=== PATIENT | male | born 1985 | race Two or more races ===

== ENCOUNTER 2017-03-20 12:20 | Inpatient (IN) | payer BC ==
[~2017-03-20] VITALS: Ht 175.3 cm; Wt 66.2 kg
[2017-03-20] MEDS ORDERED: PROSCAR5 MG ORAL (12:28)
[2017-03-20] MEDS ORDERED: DESCOVY 200-251 EACH PO (12:28)
[2017-03-20] MEDS ORDERED: TIVICAY10 MG PO (12:28)
[2017-03-20] MEDS ORDERED: XANAX0.25 MG ORAL (12:28)
[2017-03-20] MEDS ORDERED: FLONASE ALLERG9.9 ML NS (12:28)
[2017-03-20 12:31] VITALS: BP 128/75
--- NOTE | 2017-03-20 12:37 | Emergency Room Report ---
History of Present Illness General Chief Complaint: Skin Rash/Abscess Source: Patient (Eden James) Present Illness HPI 31-year-old male presents to the emergency department complaining of 10 out of 10 in severity pain, tenderness, erythema, swelling to a localized area on the buttocks x4 days. Patient also reports new onset fevers, chills. Patient has a history of HIV he does not know his CD4 count but he states last visit it was in the 500s. Pt denies trauma, fall, blood in the stool or black tarry stools. Denies CP, Palpitations, LOC, AMS, dizziness, Changes in Vision, Sensation, paresthesias, or a sudden severe headache. (Eden James) Allergies: Coded Allergies: No Known Allergies (Unverified , 03/20/17) Patient History Past Medical History: see triage record, HIV Past Surgical History: none Pertinent Family History: none Reviewed Nursing Documentation: PMH: Agreed, PSxH: Agreed (Eden James) Nursing Documentation-PMH Past Medical History: No History, Except For (Eden James) Review of Systems All Other Systems: negative except mentioned in HPI (Eden James) Physical Exam Vital Signs Date Time Temp Pulse Resp B/P (MAP) Pulse Ox O2 Delivery O2 Flow Rate FiO2 03/20/17 12:24 98.1 91 18 128/75 99 Room Air (Eden James.AClyde) Medical Decision Making [place] Attestation Dr. Greene is my supervising Physician whom patient management has been discussed with. (Eden James.Essie) Medicare Attestation The history of Dusty Talamantes has been reviewed and management options for him have been examined and discussed by Vidhya Greene. I have personally examined and interviewed the patient. And I do agree with the workup evaluation and disposition (VIDHYA GREENE D.O.) Diagnostic Impression: Primary Impression: Cellulitis and abscess of buttock ER Course 31-year-old male presents to the emergency department complaining of 10 out of 10 in severity pain, tenderness, erythema, swelling to a localized area on the buttocks x4 days. Patient also reports new onset fevers, chills. Patient has a history of HIV he does not know his CD4 count but he states last visit it was in the 500s. Pt denies trauma, fall, blood in the stool or black tarry stools. Denies CP, Palpitations, LOC, AMS, dizziness, Changes in Vision, Sensation, paresthesias, or a sudden severe headache. Ddx considered but are not limited to cellulitis, abscess, cystic acne, necrotizing fasciitis, insect bite, pilonidal just to name a few. Vital signs: are WNL, pt. is afebrile H&PE are most consistent with cellulitis and abscess in an immune compromised patient. ORDERS: -CBC -CMP: ED INTERVENTIONS: - Tetanus -IV Abx: - Morphine IV DISPOSITION: at this time pt. will be admitted to Dr. Avery for Cellulitis and abscess. Dr. Avery agreed to admit the pt. and to continue pt. care management. Labs Test 03/20/17 13:05 White Blood Count 8.1 K/UL (4.8-10.8) Red Blood Count 4.49 M/UL (4.70-6.10) Hemoglobin 14.7 G/DL (14.2-18.0) Hematocrit 42.7 % (42.0-52.0) Mean Corpuscular Volume 95 FL (80-99) Mean Corpuscular Hemoglobin 32.6 PG (27.0-31.0) Mean Corpuscular Hemoglobin Concent 34.3 G/DL (32.0-36.0) Red Cell Distribution Width 12.0 % (11.6-14.8) Platelet Count 354 K/UL (150-450) Mean Platelet Volume 5.9 FL (6.5-10.1) Neutrophils (%) (Auto) 72.8 % (45.0-75.0) Lymphocytes (%) (Auto) 18.7 % (20.0-45.0) Monocytes (%) (Auto) 6.1 % (1.0-10.0) Eosinophils (%) (Auto) 1.8 % (0.0-3.0) Basophils (%) (Auto) 0.5 % (0.0-2.0) Sodium Level 142 MMOL/L (136-145) Potassium Level 3.7 MMOL/L (3.5-5.1) Chloride Level 103 MMOL/L (98-107) Carbon Dioxide Level 31 MMOL/L (21-32) Anion Gap 9 mmol/L (5-15) Blood Urea Nitrogen 15 mg/dL (7-18) Creatinine 1.1 MG/DL (0.55-1.30) Estimat Glomerular Filtration Rate > 60 mL/min (>60) Glucose Level 84 MG/DL (74-106) Lactic Acid Level 1.20 mmol/L (0.66-2.22) Calcium Level 9.5 MG/DL (8.5-10.1) Total Bilirubin 0.3 MG/DL (0.2-1.0) Aspartate Amino Transf (AST/SGOT) 18 U/L (15-37) Alanine Aminotransferase (ALT/SGPT) 31 U/L (12-78) Alkaline Phosphatase 66 U/L (46-116) Total Creatine Kinase 129 U/L (26-308) Creatine Kinase MB 1.9 NG/ML (0.0-3.6) Creatine Kinase MB Relative Index 1.4 Troponin I 0.000 ng/mL (0.000-0.056) Total Protein 8.0 G/DL (6.4-8.2) Albumin 3.8 G/DL (3.4-5.0) Globulin 4.2 g/dL Albumin/Globulin Ratio 0.9 (1.0-2.7) (Eden James) Last Vital Signs Date Time Temp Pulse Resp B/P (MAP) Pulse Ox O2 Delivery O2 Flow Rate FiO2 03/20/17 12:31 98.1 97 18 128/75 99 Room Air (Eden James) Disposition: ADMITTED INPATIENT Condition: Serious Eden James Mar 20, 2017 12:37 VIDHYA GREENE D.O. Mar 20, 2017 13:22
[2017-03-20] MEDS ORDERED: Vancomycin 1 GM in NS 275 ML IV ONE (13:00)
[2017-03-20] MEDS ORDERED: Ampicillin/Sulbactam Sod 3 GM in NS 110 ML IV SCH (13:00)
[2017-03-20] MEDS ORDERED: Vancomycin 1gm inj IVPB ONE (13:16)
[2017-03-20] MEDS ORDERED: Unasyn 3gm Inj ONE (13:17)
[2017-03-20 13:30] VITALS: BP 111/70
[2017-03-20 13:33] LABS: BASOPHILS % (AUTO) 0.5 % (0.0-2.0); EOSINOPHILS % (AUTO) 1.8 % (0.0-3.0); HEMATOCRIT 42.7 % (42.0-52.0); HEMOGLOBIN 14.7 G/DL (14.2-18.0); LYMPHOCYTES % (AUTO) 18.7 % (20.0-45.0); MEAN CORPUSCULAR VOLUME 95 FL (80-99); MONOCYTES % (AUTO) 6.1 % (1.0-10.0); NEUTROPHILS % (AUTO) 72.8 % (45.0-75.0); PLATELET COUNT 354 K/UL (150-450); RED BLOOD COUNT 4.49 M/UL (4.70-6.10); WHITE BLOOD COUNT 8.1 K/UL (4.8-10.8)
[2017-03-20 14:02] LABS: ALANINE AMINOTRANSFERASE 31 U/L (12-78); ALBUMIN 3.8 G/DL (3.4-5.0); ALBUMIN/GLOBULIN RATIO 0.9 (1.0-2.7); ALKALINE PHOSPHATASE 66 U/L (46-116); ANION GAP 9 mmol/L (5-15); ASPARTATE AMINO TRANSFERASE 18 U/L (15-37); BILIRUBIN,TOTAL 0.3 MG/DL (0.2-1.0); BLOOD UREA NITROGEN 15 mg/dL (7-18); CALCIUM 9.5 MG/DL (8.5-10.1); CARBON DIOXIDE 31 MMOL/L (21-32); CHLORIDE 103 MMOL/L (98-107); CREATININE 1.1 MG/DL (0.55-1.30); POTASSIUM 3.7 MMOL/L (3.5-5.1); SODIUM 142 MMOL/L (136-145)
[2017-03-20 14:13] LABS: CKMB 1.9 NG/ML (0.0-3.6); CREATINE KINASE 129 U/L (26-308)
--- NOTE | 2017-03-20 14:53 | Diagnostic Imaging Report ---
Indication: Dyspnea Comparison: None A single view chest radiograph was obtained. Findings: Cardiomediastinal appearance is within normal limits for age. Pulmonary vascularity is appropriate. The diaphragmatic contour is smooth and costophrenic angles are sharp. No pleural effusions are identified. The bones are unremarkable. Impression: No acute findings
--- NOTE | 2017-03-20 15:15 | Diagnostic Imaging Report ---
Indication: Abdominal pain Technique: Continuous helical transaxial imaging of the abdomen and pelvis was obtained from the lung bases to the pubic symphysis during intravenous contrast administration. Coronal 2-D reformats were also obtained. Study obtained in a Siemens sensation [address] Total Dose length Product (DLP): [address] Dose Index Volume (CTDIvol): 0.15, 10.62 mGy Comparison: None. Findings: There is a tiny gallbladder which is nondistended. The lung bases are clear. There are no renal stones or hydronephrosis demonstrated. The spleen and liver appear unremarkable. No obvious abnormalities of the pancreas identified. The appendix is identified and appears normal. There is no evidence of bowel obstruction. There is no free fluid or free air. There is a moderate amount of fecal material in the colon. Pression: No acute findings. The CT scanner at [facility] is accredited by the [employer] and the scans are performed using dose optimization techniques as appropriate to a performed exam including Automatic Exposure control.
--- NOTE | 2017-03-20 15:15 | Diagnostic Imaging Report ---
Indication: Abdominal pain Technique: Continuous helical transaxial imaging of the abdomen and pelvis was obtained from the lung bases to the pubic symphysis during intravenous contrast administration. Coronal 2-D reformats were also obtained. Study obtained in a Siemens sensation [address] Total Dose length Product (DLP): [address] Dose Index Volume (CTDIvol): 0.15, 10.62 mGy Comparison: None. Findings: There is a tiny gallbladder which is nondistended. The lung bases are clear. There are no renal stones or hydronephrosis demonstrated. The spleen and liver appear unremarkable. No obvious abnormalities of the pancreas identified. The appendix is identified and appears normal. There is no evidence of bowel obstruction. There is no free fluid or free air. There is a moderate amount of fecal material in the colon. Pression: No acute findings. The CT scanner at [facility] is accredited by the [employer] and the scans are performed using dose optimization techniques as appropriate to a performed exam including Automatic Exposure control.
[2017-03-20 15:30] VITALS: BP 104/64
[2017-03-20 15:59] VITALS: BP 117/70
--- NOTE | 2017-03-20 16:26 | History and Physical ---
History of Present Illness General Date patient seen: Mar 20, 2017 Reason for Hospitalization: Skin Rash/Abscess Present Illness HPI 31-year-old male with hx of HIV, undetectable virus load, presents to the emergency department complaining of 10 out of 10 in severity pain, tenderness, erythema, swelling to a localized area on the buttocks x4 days. Patient also reports new onset fevers, chills. Pt was diagnosed to have sepsis and fever secondary to deep abscess in buttock area. Allergies: Coded Allergies: No Known Allergies (Unverified , 03/20/17) Medication History Scheduled Alprazolam* (Xanax*), 0.25 MG ORAL THREE TIMES A DAY, (Reported) Dolutegravir Sodium (Tivicay), 10 MG PO DAILY, (Reported) Emtricitabine/Tenofov Alafenam (Descovy 200-25 mg Tablet), 1 EACH PO DAILY, ( Reported) Finasteride* (Proscar*), 5 MG ORAL DAILY, (Reported) Miscellaneous Medications Fluticasone Propionate (Flonase Allergy Relief), 9.9 ML NS, (Reported) Patient History Healthcare decision maker Resuscitation status Full Code Advanced Directive on File Past Medical/Surgical History Past Medical/Surgical History: (1) HIV disease Review of Systems Constitutional: Reports: no symptoms Eye: Reports: other ENT: Reports: no symptoms Physical Exam General Appearance: WD/WN Lines, tubes and drains: peripheral HEENT: normocephalic, atraumatic Neck: non-tender, normal alignment Respiratory/Chest: chest wall non-tender, lungs clear Cardiovascular/Chest: normal peripheral pulses, regular rhythm Abdomen: normal bowel sounds, non tender Genitourinary/Rectal: normal genital exam, normal rectal exam Extremities: normal range of motion Skin Exam: normal pigmentation Neurologic: no motor/sensory deficits Last 24 Hour Vital Signs Date Time Temp Pulse Resp B/P (MAP) Pulse Ox O2 Delivery O2 Flow Rate FiO2 03/20/17 15:59 98.3 90 21 117/70 97 Room Air 03/20/17 15:30 97.9 82 20 104/64 100 Room Air 03/20/17 15:30 98.2 82 20 104/64 100 Room Air 03/20/17 13:30 97.9 82 18 111/70 98 Room Air 03/20/17 12:31 98.1 97 18 128/75 99 Room Air 03/20/17 12:24 98.1 91 18 128/75 99 Room Air Intake and Output 03/20/17 03/21/17 19:00 07:00 Intake Total 110 ml Balance 110 ml Intake IV Total 110 ml # Voids 2 Laboratory Tests Test 03/20/17 13:05 White Blood Count 8.1 K/UL (4.8-10.8) Red Blood Count 4.49 M/UL (4.70-6.10) L Hemoglobin 14.7 G/DL (14.2-18.0) Hematocrit 42.7 % (42.0-52.0) Mean Corpuscular Volume 95 FL (80-99) Mean Corpuscular Hemoglobin 32.6 PG (27.0-31.0) H Mean Corpuscular Hemoglobin Concent 34.3 G/DL (32.0-36.0) Red Cell Distribution Width 12.0 % (11.6-14.8) Platelet Count 354 K/UL (150-450) Mean Platelet Volume 5.9 FL (6.5-10.1) L Neutrophils (%) (Auto) 72.8 % (45.0-75.0) Lymphocytes (%) (Auto) 18.7 % (20.0-45.0) L Monocytes (%) (Auto) 6.1 % (1.0-10.0) Eosinophils (%) (Auto) 1.8 % (0.0-3.0) Basophils (%) (Auto) 0.5 % (0.0-2.0) Sodium Level 142 MMOL/L (136-145) Potassium Level 3.7 MMOL/L (3.5-5.1) Chloride Level 103 MMOL/L (98-107) Carbon Dioxide Level 31 MMOL/L (21-32) Anion Gap 9 mmol/L (5-15) Blood Urea Nitrogen 15 mg/dL (7-18) Creatinine 1.1 MG/DL (0.55-1.30) Estimat Glomerular Filtration Rate > 60 mL/min (>60) Glucose Level 84 MG/DL (74-106) Lactic Acid Level 1.20 mmol/L (0.66-2.22) Calcium Level 9.5 MG/DL (8.5-10.1) Total Bilirubin 0.3 MG/DL (0.2-1.0) Aspartate Amino Transf (AST/SGOT) 18 U/L (15-37) Alanine Aminotransferase (ALT/SGPT) 31 U/L (12-78) Alkaline Phosphatase 66 U/L (46-116) Total Creatine Kinase 129 U/L (26-308) Creatine Kinase MB 1.9 NG/ML (0.0-3.6) Creatine Kinase MB Relative Index 1.4 Troponin I 0.000 ng/mL (0.000-0.056) Total Protein 8.0 G/DL (6.4-8.2) Albumin 3.8 G/DL (3.4-5.0) Globulin 4.2 g/dL Albumin/Globulin Ratio 0.9 (1.0-2.7) L Height (Feet): 5 Height (Inches): 9.00 Weight (Pounds): 146 Medications Current Medications Medications (Trade) Dose Ordered Sig/Stephen Route PRN Reason Start Time Stop Time Status Last Admin Dose Admin Acetaminophen (Tylenol) 650 mg Q4H PRN ORAL fever 03/20/17 16:30 04/19/17 16:29 UNV Albuterol/ Ipratropium (Albuterol/ Ipratropium) 3 ml EVERY 4 HOURS PRN HHN Shortness of Breath 03/20/17 16:30 03/25/17 16:29 UNV Alprazolam (Xanax) 0.25 mg THREE TIMES A DAY ORAL 03/20/17 18:00 03/27/17 17:59 UNV Ampicillin Sodium/ Sulbactam Sodium 3 gm/Sodium Chloride 110 ml @ 220 mls/hr Q6H IV 03/20/17 13:00 03/21/17 12:59 03/20/17 13:30 Cefepime HCl 2 gm/ Dextrose 110 ml @ 220 mls/hr EVERY 12 HOURS IV 03/20/17 21:00 03/27/17 20:59 UNV Dextrose (Dextrose 50%) STAT PRN IV Hypoglycemia 03/20/17 16:30 04/19/17 16:29 UNV Finasteride (Proscar) 5 mg DAILY ORAL 03/21/17 09:00 04/20/17 08:59 UNV Heparin Sodium (Porcine) (Heparin 5000 units/ml) 5,000 units EVERY 12 HOURS SUBQ 03/20/17 21:00 126/17 20:59 UNV Nitroglycerin (Ntg) 0.4 mg Every 5 Minutes PRN SL Prn Chest Pain 03/20/17 16:30 04/19/17 16:29 UNV Ondansetron HCl (Zofran) 4 mg Q6H PRN IVP Nausea & Vomiting 03/20/17 16:30 04/19/17 16:29 UNV Polyethylene Glycol (Miralax) 17 gm DAILYPRN PRN ORAL Constipation 03/20/17 16:30 04/19/17 16:29 UNV Temazepam (Restoril) 15 mg HSPRN PRN ORAL Insomnia 03/20/17 16:30 03/27/17 16:29 UNV Vancomycin HCl 1 gm/Dextrose 275 ml @ 183.3 mls/ hr Q24H IV 03/21/17 00:30 03/26/17 00:29 UNV Assessment/Plan Problem List: (1) Cellulitis and abscess of buttock ICD Codes: L02.31 - Cutaneous abscess of buttock; L03.317 - Cellulitis of buttock SNOMED: 356589642 (2) Sepsis ICD Codes: A41.9 - Sepsis, unspecified organism SNOMED: 99179765 (3) HIV disease ICD Codes: B20 - Human immunodeficiency virus [HIV] disease SNOMED: 59889038 Assessment/Plan IV antibiotics check cultures surgical consult BLADIMIR ALICIA Mar 20, 2017 16:26
[2017-03-20] MEDS ORDERED: Nitroglycerin Subl 0.4mg tab SL PRN (16:30)
[2017-03-20] MEDS ORDERED: Albuterol/Ipratropium 3ml neb HHN PRN (16:30)
[2017-03-20] MEDS ORDERED: Miralax 17gm pkt ORAL PRN (16:30)
[2017-03-20] MEDS: ALPRAZolam 0.25mg tab ORAL SCH (18:00)
[2017-03-20] MEDS: Cefepime HCl 2 GM in NS 110 ML IV SCH (20:19)
[2017-03-20] MEDS: Heparin 5000 units/ml inj SUBQ SCH (20:19)
[2017-03-20 20:52] VITALS: BP 128/88
[2017-03-21] VITALS: BP 121/82
[2017-03-21] MEDS: Vancomycin 1 GM in D5W 275 ML IVPB SCH ×2 (01:34→13:57)
[2017-03-21 04:00] VITALS: BP 129/87
[2017-03-21 06:58] LABS: EOSINOPHILS % (AUTO) 3.2 % (0.0-3.0); HEMATOCRIT 39.3 % (42.0-52.0); LYMPHOCYTES % (AUTO) 26.5 % (20.0-45.0); MEAN CORPUSCULAR VOLUME 93 FL (80-99); NEUTROPHILS % (AUTO) 64.3 % (45.0-75.0); PLATELET COUNT 319 K/UL (150-450); RED BLOOD COUNT 4.22 M/UL (4.70-6.10); RED CELL DISTRIBUTION WIDTH 11.8 % (11.6-14.8)
[2017-03-21 07:18] LABS: ALANINE AMINOTRANSFERASE 32 U/L (12-78); ALBUMIN 3.2 G/DL (3.4-5.0); ALBUMIN/GLOBULIN RATIO 0.9 (1.0-2.7); ALKALINE PHOSPHATASE 60 U/L (46-116); ANION GAP 10 mmol/L (5-15); ASPARTATE AMINO TRANSFERASE 17 U/L (15-37); BILIRUBIN,TOTAL 0.3 MG/DL (0.2-1.0); BLOOD UREA NITROGEN 9 mg/dL (7-18); CALCIUM 9.1 MG/DL (8.5-10.1); CARBON DIOXIDE 25 MMOL/L (21-32); CHLORIDE 104 MMOL/L (98-107); CREATININE 0.9 MG/DL (0.55-1.30); POTASSIUM 3.9 MMOL/L (3.5-5.1); SODIUM 139 MMOL/L (136-145)
[2017-03-21 08:00] VITALS: BP 128/77
[2017-03-21] MEDS ORDERED: Flu Vaccine Quadrivalent 0.5ml IM ONE (09:00)
[2017-03-21] MEDS: Cefepime HCl 2 GM in NS 110 ML IV SCH (09:19)
[2017-03-21] MEDS: ALPRAZolam 0.25mg tab ORAL SCH ×3 (10:01→20:04)
[2017-03-21] MEDS: Heparin 5000 units/ml inj SUBQ SCH ×2 (10:36→20:03)
[2017-03-21 12:00] VITALS: BP 139/85
--- NOTE | 2017-03-21 15:07 | Consultation ---
Consult Note Consult Note ID DIC # [id number] FER GOOD M.D. Mar 21, 2017 15:07
--- NOTE | 2017-03-21 15:07 | Consultation ---
Consult Note Consult Note ID DIC # [id number] FER GOOD M.D. Mar 21, 2017 15:07
--- NOTE | 2017-03-21 15:07 | Consultation ---
Consult Note Consult Note ID DIC # [id number] FER GOOD M.D. Mar 21, 2017 15:07
[2017-03-21 16:00] VITALS: BP 106/48
--- NOTE | 2017-03-21 16:38 | Cardiology Report ---
APPROVED REPORT EKG Measurement Heart [id number] DC 150P85 [id number] Normal sinus rhythm with sinus arrhythmia Rightward axis Borderline ECG
--- NOTE | 2017-03-21 16:38 | Cardiology Report ---
APPROVED REPORT EKG Measurement Heart [id number] SD 150P85 [id number] Normal sinus rhythm with sinus arrhythmia Rightward axis Borderline ECG
--- NOTE | 2017-03-21 16:38 | Cardiology Report ---
APPROVED REPORT EKG Measurement Heart [id number] NH 150P85 [id number] Normal sinus rhythm with sinus arrhythmia Rightward axis Borderline ECG
[2017-03-21 20:00] VITALS: BP 129/86
--- NOTE | 2017-03-21 22:15 | Consultation ---
DATE OF CONSULTATION: 03/21/2017 INFECTIOUS DISEASE CONSULTATION CONSULTING PHYSICIAN: Manfred Alas M.D. REFERRING PHYSICIAN: Carla Avery M.D. REASON FOR CONSULTATION: Evaluation of the patient for buttock abscess and antibiotic management. HISTORY OF PRESENT ILLNESS: The patient is a 31-year-old male with multiple medical problems including history of HIV, history of hemorrhoids, and anxiety, was admitted to this medical center due to the above on the left buttock area. Infectious Disease consultation has been obtained for further evaluation of the patient and antibiotic management. PAST MEDICAL HISTORY: 1. History of HIV, CD4 over 600, undetectable viral load, on his HIV regimen. 2. Anxiety. 3. History of hemorrhoid. MEDICATIONS: IV vancomycin and cefepime. FAMILY HISTORY: Not contributing. REVIEW OF SYSTEMS: A 10-point review was done and except what is mentioned above has been negative. PHYSICAL EXAMINATION: VITAL SIGNS: Temperature 97.5 degrees, blood pressure 139/85, pulse 66, and respiratory rate 18. HEENT: No pale conjunctivae. No icterus. NECK: No lymphadenopathy. CHEST: Clear. HEART: S1 and S2. ABDOMEN: Soft. EXTREMITIES: The patient has a left buttock abscess. No drainage yet. No cyanosis. NEUROLOGIC: Awake. LABORATORY DATA: WBC 8, hemoglobin 14, and platelets 219. BUN 9 and creatinine 0.9. Liver function tests unremarkable. CT of the abdomen and pelvis, no acute finding. Chest x-ray, no acute finding. ASSESSMENT: 1. Human immunodeficiency virus. We will continue with his human immunodeficiency virus medication. We will continue the patient on Tivicay and Descovy. 2. Monitor CBC. 3. Monitor BMP. 4. We will continue the patient on IV vancomycin. 5. Upon discharge, we will change to Bactrim. 6. Recommend surgical evaluation for incision and drainage of the abscess. Thank you, Dr. Avery, for allowing me to participate in the care of this patient. I will follow the patient with you during this admission. Manrfed Alas M.D. DR: FRANCISCA JOB#: [id number] CC:
[2017-03-22] VITALS: BP 124/85
[2017-03-22] MEDS: Vancomycin 1 GM in D5W 275 ML IVPB SCH ×3 (01:37→21:51)
[2017-03-22 04:00] VITALS: BP 113/69
[2017-03-22] MEDS: ALPRAZolam 0.25mg tab ORAL SCH ×3 (04:59→20:28)
[2017-03-22 07:56] VITALS: BP 120/71
--- NOTE | 2017-03-22 10:13 | Consultation ---
History of Present Illness General Date patient seen: Mar 22, 2017 Chief Complaint: Skin Rash/Abscess Present Illness HPI 31 year old male with history of HIV on Rx with current cell count of 637 and undetectable viral load presents with worsening buttock abscess for 5 days. As per patient, he first noted a small " pimple" on his left upper buttock 5 days ago. since it enlarged significantly until a point it began to spontaneously drain purulent fluid. He initially went to urgent care facility which recommended he go to his PCP. He went to his PCP who started him on Abx and had him come to ED given size and drainage. Patient then went to ED and was admitted for IV Abx and care. Since states he feels as if Abx as working. pain improving. has not noticed drainage in 24hrs. subjective fevers 2 days ago at home but currently afebrile. surgery called to evaluate. Allergies: Coded Allergies: No Known Allergies (Unverified , 03/20/17) Medication History Scheduled Alprazolam* (Xanax*), 0.25 MG ORAL THREE TIMES A DAY, (Reported) Dolutegravir Sodium (Tivicay), 10 MG PO DAILY, (Reported) Emtricitabine/Tenofov Alafenam (Descovy 200-25 mg Tablet), 1 EACH PO DAILY, ( Reported) Finasteride* (Proscar*), 5 MG ORAL DAILY, (Reported) Miscellaneous Medications Fluticasone Propionate (Flonase Allergy Relief), 9.9 ML NS, (Reported) Patient History History Provided By: Patient Healthcare decision maker Resuscitation status Full Code Advanced Directive on File Past Medical/Surgical History Past Medical/Surgical History: (1) Cellulitis (2) Cellulitis and abscess of buttock (3) HIV disease (4) Sepsis Review of Systems All Other Systems: negative except mentioned in HPI Physical Exam General Appearance: no apparent distress Lines, tubes and drains: peripheral HEENT: normocephalic, mucous membranes moist Neck: normal inspection Respiratory/Chest: normal breath sounds, no respiratory distress, no accessory muscle use Cardiovascular/Chest: normal peripheral pulses, normal rate, regular rhythm Abdomen: normal bowel sounds, non tender, soft, no organomegaly, no mass Genitourinary/Rectal: other - 4cm x 2cm left upper medial buttock cellulitis noted. tender on palpation. no areas of fluctuance. no drainage. no tracking. Extremities: normal inspection Skin Exam: normal pigmentation, warm/dry Neurologic: alert, oriented x 3 Last 24 Hour Vital Signs Date Time Temp Pulse Resp B/P (MAP) Pulse Ox O2 Delivery O2 Flow Rate FiO2 03/22/17 07:56 98.2 84 19 120/71 98 Room Air 03/22/17 06:04 98.0 03/22/17 04:00 97.0 75 18 113/69 98 Room Air 03/22/17 00:00 98.0 80 18 124/85 96 Room Air 03/21/17 20:00 98.1 73 18 129/86 96 Room Air 03/21/17 16:00 98.1 69 19 106/48 97 Room Air 03/21/17 16:00 98.1 69 19 106/48 97 Room Air 03/21/17 12:00 97.5 68 12 139/85 99 Room Air Height (Feet): 5 Height (Inches): 9.00 Weight (Pounds): 146 Medications Current Medications Medications (Trade) Dose Ordered Sig/Stephen Route PRN Reason Start Time Stop Time Status Last Admin Dose Admin Acetaminophen (Tylenol) 650 mg Q4H PRN ORAL fever 03/20/17 16:30 04/19/17 16:29 Albuterol/ Ipratropium (Albuterol/ Ipratropium) 3 ml Q4H PRN HHN Shortness of Breath 03/20/17 16:30 03/25/17 16:29 Alprazolam (Xanax) 0.25 mg Q8HR@0500,1300,2100 ORAL 03/21/17 21:00 03/27/17 17:59 03/22/17 04:59 Dextrose (Dextrose 50%) STAT PRN IV Hypoglycemia 03/20/17 16:30 04/19/17 16:29 Finasteride (Proscar) 5 mg DAILY ORAL 03/21/17 09:00 04/20/17 08:59 03/21/17 10:31 Heparin Sodium (Porcine) (Heparin 5000 units/ml) 5,000 units EVERY 12 HOURS SUBQ 03/20/17 21:00 04/19/17 20:59 03/21/17 20:03 Ibuprofen (Motrin) 600 mg Q6H PRN ORAL Pain Scale (6-10) 03/20/17 17:15 04/19/17 17:14 03/22/17 04:59 Nitroglycerin (Ntg) 0.4 mg Every 5 Minutes PRN SL Prn Chest Pain 03/20/17 16:30 04/19/17 16:29 Ondansetron HCl (Zofran) 4 mg Q6H PRN IVP Nausea & Vomiting 03/20/17 16:30 04/19/17 16:29 Polyethylene Glycol (Miralax) 17 gm DAILYPRN PRN ORAL Constipation 03/20/17 16:30 04/19/17 16:29 Temazepam (Restoril) 15 mg HSPRN PRN ORAL Insomnia 03/20/17 16:30 03/27/17 16:29 Vancomycin HCl (Vanco rx to dose) 1 ea DAILY PRN MISC PER RX PROTOCOL 03/20/17 18:15 04/19/17 18:14 Vancomycin HCl 1 gm/Dextrose 275 ml @ 183.3 mls/ hr Q12H IVPB 03/21/17 02:00 03/26/17 01:59 03/22/17 01:37 Assessment/Plan Problem List: (1) Cellulitis and abscess of buttock Assessment & Plan: 31M with left upper buttock abscess which has since spontaneously drained and now just has some surrounding cellulitis. Afebrile, HD stable, labs okay, CT reviewed, exam as above. no area of fluctuance noted on exam. improving on Abx. mainly cellulitis since spontaneous drainage of abscess. -no acute surgical intervention necessary. -will monitor wound. -continue Abx thank you for this consultation. ICD Codes: L02.31 - Cutaneous abscess of buttock; L03.317 - Cellulitis of buttock SNOMED: 630836005 Status: stable AnthonyKevin russell Mar 22, 2017 10:13
[2017-03-22] MEDS: Heparin 5000 units/ml inj SUBQ SCH ×2 (10:14→20:58)
[2017-03-22 11:28] VITALS: BP 124/70
--- NOTE | 2017-03-22 12:11 | Infectious Diseases Prog Note ---
Assessment/Plan Assessment/Plan ASSESSMENT: Buttock abscess History of HIV, CD4 over 600, undetectable viral load, on HAART Anxiety History of hemorrhoid. P: We will continue IV Vanco d# 2 , we will cont pt on Bactrim x 1 wk as out pt ( Rx in chart ) cont Tivicay and Descovy. Monitor CBC. Monitor BMP as per Surg recs no need of incision and drainage of the abscess. Subjective Constitutional: Denies: no symptoms, fever, chills, fatigue, anorexia, drenching sweats, other Allergies: Coded Allergies: No Known Allergies (Unverified , 03/20/17) Objective Vital Signs Last 24 Hour Vital Signs Date Time Temp Pulse Resp B/P (MAP) Pulse Ox O2 Delivery O2 Flow Rate FiO2 03/22/17 11:28 97.9 87 19 124/70 97 Room Air 03/22/17 07:56 98.2 84 19 120/71 98 Room Air 03/22/17 06:04 98.0 03/22/17 04:00 97.0 75 18 113/69 98 Room Air 03/22/17 00:00 98.0 80 18 124/85 96 Room Air 03/21/17 20:00 98.1 73 18 129/86 96 Room Air 03/21/17 16:00 98.1 69 19 106/48 97 Room Air 03/21/17 16:00 98.1 69 19 106/48 97 Room Air Height (Feet): 5 Height (Inches): 9.00 Weight (Pounds): 146 HEENT: anicteric Respiratory/Chest: no respiratory distress Cardiovascular: regular rhythm Abdomen: no organomegaly Microbiology Date/Time Source Procedure Growth Status 03/20/17 13:05 Blood Blood Culture - Preliminary NO GROWTH AFTER 24 HOURS Resulted 03/20/17 13:00 Blood Blood Culture - Preliminary NO GROWTH AFTER 24 HOURS Resulted 03/20/17 16:00 Nasal Nares MRSA Culture - Final NO METHICILLIN RESISTANT STAPH AUREUS... Complete 03/20/17 16:00 Rectum VRE Culture - Final NO VANCOMYCIN RESISTANT ENTEROCOCCUS ... Complete Current Medications Medications (Trade) Dose Ordered Sig/Stephen Route PRN Reason Start Time Stop Time Status Last Admin Dose Admin Acetaminophen (Tylenol) 650 mg Q4H PRN ORAL fever 03/20/17 16:30 04/19/17 16:29 Albuterol/ Ipratropium (Albuterol/ Ipratropium) 3 ml Q4H PRN HHN Shortness of Breath 03/20/17 16:30 03/25/17 16:29 Alprazolam (Xanax) 0.25 mg Q8HR@0500,1300,2100 ORAL 03/21/17 21:00 03/27/17 17:59 03/22/17 04:59 Dextrose (Dextrose 50%) STAT PRN IV Hypoglycemia 03/20/17 16:30 04/19/17 16:29 Finasteride (Proscar) 5 mg DAILY ORAL 03/21/17 09:00 04/20/17 08:59 03/22/17 10:10 Heparin Sodium (Porcine) (Heparin 5000 units/ml) 5,000 units EVERY 12 HOURS SUBQ 03/20/17 21:00 04/19/17 20:59 03/22/17 10:14 Ibuprofen (Motrin) 600 mg Q6H PRN ORAL Pain Scale (6-10) 03/20/17 17:15 04/19/17 17:14 03/22/17 04:59 Nitroglycerin (Ntg) 0.4 mg Every 5 Minutes PRN SL Prn Chest Pain 03/20/17 16:30 04/19/17 16:29 Ondansetron HCl (Zofran) 4 mg Q6H PRN IVP Nausea & Vomiting 03/20/17 16:30 04/19/17 16:29 Polyethylene Glycol (Miralax) 17 gm DAILYPRN PRN ORAL Constipation 03/20/17 16:30 04/19/17 16:29 Temazepam (Restoril) 15 mg HSPRN PRN ORAL Insomnia 03/20/17 16:30 03/27/17 16:29 Vancomycin HCl (Vanco rx to dose) 1 ea DAILY PRN MISC PER RX PROTOCOL 03/20/17 18:15 04/19/17 18:14 Vancomycin HCl 1 gm/Dextrose 275 ml @ 183.3 mls/ hr Q12H IVPB 03/21/17 02:00 03/26/17 01:59 03/22/17 01:37 FER GOOD M.D. Mar 22, 2017 12:11
[2017-03-22 15:42] VITALS: BP 129/69
[2017-03-22] MEDS ORDERED: BACTRIM-DS1 EA ORAL (17:48)
[2017-03-22 20:00] VITALS: BP 124/72
[2017-03-23] VITALS: BP 118/65
[2017-03-23 03:31] VITALS: BP 112/62
[2017-03-23] MEDS: ALPRAZolam 0.25mg tab ORAL SCH (05:43)
[2017-03-23] MEDS: Vancomycin 1 GM in D5W 275 ML IVPB SCH (05:43)
[2017-03-23 08:00] VITALS: BP 114/67
[2017-03-23] MEDS: Heparin 5000 units/ml inj SUBQ SCH (09:00)
--- NOTE | 2017-03-23 11:27 | General Progress Note ---
Progress Note Progress Note Surgery: no acute events. doing well. states pain and inflammation improved. no n/v/f/ c. able to lay on wound now. on exam edema, erythema, and inflammation improved. fibrinous cap almost falling off today so removed at bedside. some necrotic fibrinous tissue noted in center of wound and debrided at bedside with gauze. wound base improved. overall improving -continue abx, transition to oral -okay to d/c from surgical standpoint -as for wound care: okay to shower, okay to clean. keep clean after bm's. simple dry gauze dressings over wound until well healed. follow up with me monday for wound check. call [phone] for appointment. Kevin Lorenzana Mar 23, 2017 11:27
--- NOTE | 2017-03-23 11:27 | General Progress Note ---
Progress Note Progress Note Surgery: no acute events. doing well. states pain and inflammation improved. no n/v/f/ c. able to lay on wound now. on exam edema, erythema, and inflammation improved. fibrinous cap almost falling off today so removed at bedside. some necrotic fibrinous tissue noted in center of wound and debrided at bedside with gauze. wound base improved. overall improving -continue abx, transition to oral -okay to d/c from surgical standpoint -as for wound care: okay to shower, okay to clean. keep clean after bm's. simple dry gauze dressings over wound until well healed. follow up with me monday for wound check. call [phone] for appointment. Kevin Lorenzana Mar 23, 2017 11:27
--- NOTE | 2017-03-23 11:27 | General Progress Note ---
Progress Note Progress Note Surgery: no acute events. doing well. states pain and inflammation improved. no n/v/f/ c. able to lay on wound now. on exam edema, erythema, and inflammation improved. fibrinous cap almost falling off today so removed at bedside. some necrotic fibrinous tissue noted in center of wound and debrided at bedside with gauze. wound base improved. overall improving -continue abx, transition to oral -okay to d/c from surgical standpoint -as for wound care: okay to shower, okay to clean. keep clean after bm's. simple dry gauze dressings over wound until well healed. follow up with me monday for wound check. call [phone] for appointment. Kevin Lorenzana Mar 23, 2017 11:27
[2017-03-23 12:00] VITALS: BP 113/70
[2017-03-23] MEDS ORDERED: NS 275ml ONE (12:44)
[2017-03-23] MEDS ORDERED: Tubing IV Secondary IV ONE (12:44)
[2017-03-23] MEDS ORDERED: 1/2 NS 1000ml IV ONE (12:44)
--- NOTE | 2017-03-23 12:54 | Infectious Diseases Prog Note ---
Assessment/Plan Assessment/Plan ASSESSMENT: Buttock abscess History of HIV, CD4 over 600, undetectable viral load, on HAART Anxiety History of hemorrhoid. P: We will continue IV Vanco d# 2 , we will cont pt on Bactrim x 1 wk as out pt ( Rx in chart ) cont Tivicay and Descovy. Monitor CBC. Monitor BMP as per Surg recs no need of incision and drainage of the abscess. , it was cleared by SX Subjective Allergies: Coded Allergies: No Known Allergies (Unverified , 03/20/17) Subjective afebrile, plan of DC Objective Vital Signs Last 24 Hour Vital Signs Date Time Temp Pulse Resp B/P (MAP) Pulse Ox O2 Delivery O2 Flow Rate FiO2 03/23/17 12:00 97.7 79 21 113/70 100 Room Air 03/23/17 08:12 96 18 Room Air 21 03/23/17 08:00 97.7 79 19 114/67 100 Room Air 03/23/17 03:31 97.0 72 20 112/62 97 Room Air 03/23/17 00:00 97.5 84 18 118/65 97 Room Air 03/22/17 21:40 97.3 03/22/17 20:06 78 18 Room Air 21 03/22/17 20:00 97.3 88 18 124/72 98 Room Air 03/22/17 15:42 97.6 80 19 129/69 96 Room Air Height (Feet): 5 Height (Inches): 9.00 Weight (Pounds): 146 Microbiology Date/Time Source Procedure Growth Status 03/20/17 13:05 Blood Blood Culture - Preliminary NO GROWTH AFTER 48 HOURS Resulted 03/20/17 13:00 Blood Blood Culture - Preliminary NO GROWTH AFTER 48 HOURS Resulted 03/20/17 16:00 Nasal Nares MRSA Culture - Final NO METHICILLIN RESISTANT STAPH AUREUS... Complete 03/20/17 16:00 Rectum VRE Culture - Final NO VANCOMYCIN RESISTANT ENTEROCOCCUS ... Complete Laboratory Tests Test 03/22/17 13:00 Vancomycin Level Trough 4.4 ug/mL (5.0-12.0) FER AVILES M.D. Mar 23, 2017 12:54
--- NOTE | 2017-03-23 19:01 | Pulmonology Progress Note ---
Assessment/Plan Problems: (1) Cellulitis and abscess of buttock (2) Sepsis (3) HIV disease Assessment/Plan contine ab sx wound care all noted Subjective Interval Events: late note for 02/18 Allergies: Coded Allergies: No Known Allergies (Unverified , 03/20/17) Objective Last 24 Hour Vital Signs Date Time Temp Pulse Resp B/P (MAP) Pulse Ox O2 Delivery O2 Flow Rate FiO2 03/23/17 12:00 97.7 79 21 113/70 100 Room Air 03/23/17 08:12 96 18 Room Air 21 03/23/17 08:00 97.7 79 19 114/67 100 Room Air 03/23/17 03:31 97.0 72 20 112/62 97 Room Air 03/23/17 00:00 97.5 84 18 118/65 97 Room Air 03/22/17 21:40 97.3 03/22/17 20:06 78 18 Room Air 21 03/22/17 20:00 97.3 88 18 124/72 98 Room Air Intake and Output 03/23/17 03/24/17 19:00 07:00 Intake Total 220 ml Balance 220 ml Intake Oral 220 ml Objective General Appearance: WD/WN, no apparent distress Lines, tubes and drains: peripheral, HEENT: normocephalic, anicteric Neck: non-tender, normal alignment Respiratory/Chest: chest wall non-tender, lungs clear Cardiovascular/Chest: normal rate, regular rhythm Abdomen: non tender, soft Genitourinary/Rectal: normal genital exam, normal rectal exam Extremities: normal range of motion, non-pitting BLADIMIR ALICIA Mar 23, 2017 19:01
--- NOTE | 2017-03-23 19:02 | Pulmonology Progress Note ---
Assessment/Plan Problems: (1) Cellulitis and abscess of buttock (2) Sepsis (3) HIV disease Assessment/Plan srugery f./u appreciated improving contine ab sx wound care all noted dc home with oral ab x Subjective ROS Limited/Unobtainable: No Allergies: Coded Allergies: No Known Allergies (Unverified , 03/20/17) Objective Last 24 Hour Vital Signs Date Time Temp Pulse Resp B/P (MAP) Pulse Ox O2 Delivery O2 Flow Rate FiO2 03/23/17 12:00 97.7 79 21 113/70 100 Room Air 03/23/17 08:12 96 18 Room Air 21 03/23/17 08:00 97.7 79 19 114/67 100 Room Air 03/23/17 03:31 97.0 72 20 112/62 97 Room Air 03/23/17 00:00 97.5 84 18 118/65 97 Room Air 03/22/17 21:40 97.3 03/22/17 20:06 78 18 Room Air 21 03/22/17 20:00 97.3 88 18 124/72 98 Room Air Intake and Output 03/23/17 03/24/17 19:00 07:00 Intake Total 220 ml Balance 220 ml Intake Oral 220 ml Objective General Appearance: WD/WN, no apparent distress Lines, tubes and drains: peripheral, HEENT: normocephalic, anicteric Neck: non-tender, normal alignment Respiratory/Chest: chest wall non-tender, lungs clear Cardiovascular/Chest: normal rate, regular rhythm Abdomen: non tender, soft Genitourinary/Rectal: normal genital exam, normal rectal exam Extremities: normal range of motion, non-pitting BLADIMIR ALICIA Mar 23, 2017 19:02
--- NOTE | 2017-03-23 19:02 | Pulmonology Progress Note ---
Assessment/Plan Problems: (1) Cellulitis and abscess of buttock (2) Sepsis (3) HIV disease Assessment/Plan srugery f./u appreciated improving contine ab sx wound care all noted Subjective ROS Limited/Unobtainable: No Interval Events: late ntoe for 03/22 Constitutional: Reports: no symptoms Allergies: Coded Allergies: No Known Allergies (Unverified , 03/20/17) Objective Last 24 Hour Vital Signs Date Time Temp Pulse Resp B/P (MAP) Pulse Ox O2 Delivery O2 Flow Rate FiO2 03/23/17 12:00 97.7 79 21 113/70 100 Room Air 03/23/17 08:12 96 18 Room Air 21 03/23/17 08:00 97.7 79 19 114/67 100 Room Air 03/23/17 03:31 97.0 72 20 112/62 97 Room Air 03/23/17 00:00 97.5 84 18 118/65 97 Room Air 03/22/17 21:40 97.3 03/22/17 20:06 78 18 Room Air 21 03/22/17 20:00 97.3 88 18 124/72 98 Room Air Intake and Output 03/23/17 03/24/17 19:00 07:00 Intake Total 220 ml Balance 220 ml Intake Oral 220 ml Objective General Appearance: WD/WN, no apparent distress Lines, tubes and drains: peripheral, HEENT: normocephalic, anicteric Neck: non-tender, normal alignment Respiratory/Chest: chest wall non-tender, lungs clear Cardiovascular/Chest: normal rate, regular rhythm Abdomen: non tender, soft Genitourinary/Rectal: normal genital exam, normal rectal exam Extremities: normal range of motion, non-pitting BLADIMIR ALICIA Mar 23, 2017 19:02
--- NOTE | 2017-03-24 12:35 | Discharge Summary ---
Discharge Summary Hospital Course Date of Admission Mar 20, 2017 at 13:00 Date of Discharge Mar 23, 2017 at 12:45 Admitting Diagnosis abscess & cellulitis immune compromised HPI Dusty Talamantes is a 31 year old male who was admitted on Mar 20, 2017 at 13:00 for Abscess And Cellulitis Immune Compromised Hospital Course [id number] Discharge Discharge Disposition Patient was discharged to Home (01) Discharge Diagnoses: Desiree Ariza NP Mar 24, 2017 12:35
--- NOTE | 2017-03-24 12:35 | Discharge Summary ---
Discharge Summary Hospital Course Date of Admission Mar 20, 2017 at 13:00 Date of Discharge Mar 23, 2017 at 12:45 Admitting Diagnosis abscess & cellulitis immune compromised HPI Dusty Talamantes is a 31 year old male who was admitted on Mar 20, 2017 at 13:00 for Abscess And Cellulitis Immune Compromised Hospital Course [id number] Discharge Discharge Disposition Patient was discharged to Home (01) Discharge Diagnoses: Desiree Ariza NP Mar 24, 2017 12:35
--- NOTE | 2017-03-24 12:35 | Discharge Summary ---
Discharge Summary Hospital Course Date of Admission Mar 20, 2017 at 13:00 Date of Discharge Mar 23, 2017 at 12:45 Admitting Diagnosis abscess & cellulitis immune compromised HPI Dusty Talamantes is a 31 year old male who was admitted on Mar 20, 2017 at 13:00 for Abscess And Cellulitis Immune Compromised Hospital Course [id number] Discharge Discharge Disposition Patient was discharged to Home (01) Discharge Diagnoses: Desiree Ariza NP Mar 24, 2017 12:35
--- NOTE | 2017-03-25 01:00 | Discharge Summary 2 SIG ---
DATE OF ADMISSION: 03/20/2017 DATE OF DISCHARGE: 03/23/2017 CONSULTANTS: 1. Kevin Lorenzana M.D. 2. Manfred Alas M.D. BRIEF HOSPITAL COURSE: The patient is a 31-year-old male with history of HIV and undetectable virus load, presented to emergency department complaining of 10/10 severity of pain and tenderness with area of erythema and swelling on the buttocks for four days. The patient also reported new onset of fevers and chills. On evaluation at ED, vital signs were within normal limit. He was given tetanus shot and pain management with IV morphine. He was admitted for inpatient care for IV antibiotic treatment and surgical evaluation. He was continued on Tivicay and Descovy. CT of the abdomen and pelvis showed no acute findings. He underwent surgical evaluation. Abscess spontaneously drained with purulent fluid and on examination, there was no area of fluctuance noted mainly cellulitis with spontaneous drainage of abscess. He was recommended wound care and to continue antibiotics. There was no acute surgical intervention necessary. He was given IV vancomycin and was discharged to continue p.o. antibiotic Bactrim. FINAL DIAGNOSES: 1. Cellulitis and abscess of the buttocks. 2. Human immunodeficiency virus disease. 3. Sepsis. 4. Anxiety disorder. DISPOSITION: The patient was discharged home. DISCHARGE MEDICATIONS: Refer to medication list. DISCHARGE INSTRUCTIONS: The patient was advised to follow up with PCP in a week. Carla Aveyr M.D. I have been assigned to dictate discharge summary on this account and I was not involved in the patient's management. Desiree Ariza N.P. DR: Ana JOB#: [id number] CC: MACK
== END 2017-03-23 12:45 | disposition home or self-care (01) | DRG 975 ==
LOC: EMR 12:45 → 4E 13:00 → EDBEDREQ 14:07
DX: A41.9 Sepsis, unspecified organism (principal); B20 Human immunodeficiency virus [HIV] disease; L02.31 Cutaneous abscess of buttock; L03.317 Cellulitis of buttock; F41.9 Anxiety disorder, unspecified; Z23 Encounter for immunization
CPT/HCPCS: 36415; 71010; 74177; 80053; 80202; 82550; 82553; 83605; 84484; 85025; 87040; 87081; 90630; 93005; 94664; 99285

== ENCOUNTER 2018-09-11 19:54 | Emergency (ER) | payer SELFPAY ==
[~2018-09-11] VITALS: Ht 175.3 cm; Wt 63.5 kg
[~2018-09-11 19:54] MED LIST: BACTRIM-DS1 EA ORAL; DESCOVY 200-251 EACH PO; FLONASE ALLERG9.9 ML NS; PROSCAR5 MG ORAL; TIVICAY10 MG PO; XANAX0.25 MG ORAL
--- NOTE | 2018-09-11 20:15 | NUR ---
ED Nurse Note: RECVIEVED PT FROM HOME, AWAKE, ALERT AND ORIENTED X 4, PT IS HERE WITH C/O ABDOMINAL PAIN WITH DIARRHEA AND NAUSEA X 3 DAYS, PT DENIES CP, SOB, OR ANY OTHER COMPLAINTS, STATES DIARRHEA IS REAL BAD, PT IS AMBULATING SLOWLY, WITH FAMILY MEMBER FROM HOME, PT IMMEDIATELY ASSISTED WITH GOWNING AND URINE SAMPLE, WILL RESUME CARE ORDERED AND CLOSELY MONITOR.
[2018-09-11] MEDS ORDERED: Morphine Sulfate 4mg/ml Inj (IV USE ONLY) IVP ONE (20:45)
[2018-09-11] MEDS ORDERED: Isovue-300 100ml vial INJ PRN (20:45)
[2018-09-11] MEDS ORDERED: Hydromorphone 0.5mg/0.5ml inj IVP ONE (21:15)
[2018-09-11 21:19] LABS: ANION GAP 8 mmol/L (5-15); BLOOD UREA NITROGEN 8 mg/dL (7-18); CALCIUM 8.9 MG/DL (8.5-10.1); CARBON DIOXIDE 28 MMOL/L (21-32); CHLORIDE 100 MMOL/L (98-107); CREATININE 1.1 MG/DL (0.55-1.30); POTASSIUM 3.6 MMOL/L (3.5-5.1); SODIUM 136 MMOL/L (136-145)
[2018-09-11 21:23] LABS: ALANINE AMINOTRANSFERASE 34 U/L (12-78); ALBUMIN 3.5 G/DL (3.4-5.0); ALBUMIN/GLOBULIN RATIO 0.9 (1.0-2.7); ALKALINE PHOSPHATASE 55 U/L (46-116); ASPARTATE AMINO TRANSFERASE 18 U/L (15-37); BASOPHILS % (AUTO) 0.9 % (0.0-2.0); BILIRUBIN,TOTAL 0.4 MG/DL (0.2-1.0); CREATINE KINASE 73 U/L (26-308); EOSINOPHILS % (AUTO) 0.3 % (0.0-3.0); HEMATOCRIT 40.4 % (42.0-52.0); HEMOGLOBIN 14.1 G/DL (14.2-18.0); LYMPHOCYTES % (AUTO) 9.8 % (20.0-45.0); MEAN CORPUSCULAR VOLUME 85 FL (80-99); MONOCYTES % (AUTO) 11.1 % (1.0-10.0); NEUTROPHILS % (AUTO) 77.9 % (45.0-75.0); PLATELET COUNT 275 K/UL (150-450); RED BLOOD COUNT 4.74 M/UL (4.70-6.10); RED CELL DISTRIBUTION WIDTH 11.3 % (11.6-14.8); WHITE BLOOD COUNT 7.9 K/UL (4.8-10.8)
[2018-09-11 21:25] LABS: APPEARANCE,URINE CLEAR; BILIRUBIN, URINE NEGATIVE (NEGATIVE); GLUCOSE, URINE (UA) NEGATIVE (NEGATIVE); KETONES,URINE NEGATIVE (NEGATIVE); LEUKOCYTE ESTERASE ,URINE 1+ (NEGATIVE); NITRITE,URINE NEGATIVE (NEGATIVE); PH,URINE 8 (4.5-8.0); PROTEIN,URINE NEGATIVE (NEGATIVE); UROBILINOGEN,URINE NORMAL MG/DL (0.0-1.0)
[2018-09-11 21:34] LABS: COLOR,URINE YELLOW
--- NOTE | 2018-09-11 21:35 | NUR ---
ED Nurse Note: PT RESTING IN BED, MEDICATED ORDERED, MEDS SLIGHTLY EFFECTIVE WITH PAIN AT 6/10, PT MEDICATED TWICE, REMAINS ON CARDIAC MONITORING, V/S STABLE, PT REMAINS WITH DIARRHEA X 3, MD AWARE, WILL CONTINUE TO CLOSELY MONITOR PT IS PREPING FOR ABDOMINAL CT-SCAN.
[2018-09-11 21:45] VITALS: BP 121/75
--- NOTE | 2018-09-11 21:51 | Emergency Room Report ---
History of Present Illness General Chief Complaint: Abdominal Pain Source: Patient Present Illness HPI Patient presents with left lower quadrant pain. Started earlier today. He's also had diarrhea. He's felt feverish. There's been no vomiting. He's never had pain like this before. He denies any blood in the stool. The pain is 8/10 left lower quadrant. He denies renal stones or UTIs or kidney infections. He did not take any medication before coming in. The pain is rated 10/10, aching but mostly constant and slightly relieved by moving his bowels. It is not radiating to his kidney area but somewhat to his back in the left lower gluteal area. Patient has a history of HIV. He is stable on antivirals and states his CD4 is good and viral titers are negative. Significant other states that many years ago he had Cryptosporidium before starting on antivirals. The patient denies colonoscopy. No chest pain, palpitations, nausea, vomiting, dysuria, shortness of breath, depression, visual changes, headache. Allergies: Coded Allergies: No Known Allergies (Unverified , 03/20/17) Patient History Past Medical History: see triage record Social History: Reports: drug use - see tox; Denies: smoking Social History Narrative With significant other Reviewed Nursing Documentation: PMH: Agreed; PSxH: Agreed Nursing Documentation-PMH Past Medical History: No History, Except For Hx Cardiac Problems: No - HIV Hx Cancer: No Hx Gastrointestinal Problems: Yes Hx Neurological Problems: No Review of Systems All Other Systems: negative except mentioned in HPI Physical Exam Vital Signs Date Time Temp Pulse Resp B/P (MAP) Pulse Ox O2 Delivery O2 Flow Rate FiO2 09/11/18 20:03 99.5 112 14 126/73 95 Room Air Sp02 EP Interpretation: reviewed, normal General Appearance: alert, GCS 15, non-toxic, mild distress Head: normocephalic Eyes: bilateral eye normal inspection, bilateral eye PERRL, bilateral eye EOMI ENT: moist mucus membranes Neck: supple Respiratory: lungs clear, normal breath sounds Cardiovascular #1: regular rate, rhythm Cardiovascular #2: 2+ radial (R) Gastrointestinal: normal inspection, normal bowel sounds, no mass, non- distended, no rebound, guarding, tenderness - Left lower quadrant Genitourinary: no CVA tenderness Musculoskeletal: back normal, gait/station normal, normal range of motion Neurologic: alert, oriented x3, grossly normal Psychiatric: anxious - Tearful Skin: normal inspection, warm/dry Medical Decision Making Diagnostic Impression: Primary Impression: Colitis Additional Impressions: Positive amphetamine drug screen HIV disease ER Course Patient presents with a left lower quadrant pain and diarrhea. Differential includes colitis, diverticulitis, renal stone, pyelonephritis, prostatitis amongst others. The patient will be evaluated with labs and CT of the abdomen and pelvis with oral and IV contrast. The patient will be treated with IV hydration and Zofran, Pepcid and morphi Patient's friend states the pain is now 6/10 and required it's more analgesia. Dilaudid 1/2 mg given IV. Labs with normal white count and H&H. MP and lipase is normal. Urinalysis unremarkable. CT scan consistent with colitis without any other surgical pathology. Patient improved with treatment. Discussed treatment plan. Ciprofloxacin begun. Stool sample obtained and sent to lab. Discussed positive tox screen with patient. He denies use of Adderall or other drugs. Discussed outpatient observation with patient and significant other. He is stable for outpatient observation and treatment. Laboratory Tests Test 09/11/18 20:40 White Blood Count 7.9 K/UL (4.8-10.8) Red Blood Count 4.74 M/UL (4.70-6.10) Hemoglobin 14.1 G/DL (14.2-18.0) L Hematocrit 40.4 % (42.0-52.0) L Mean Corpuscular Volume 85 FL (80-99) Mean Corpuscular Hemoglobin 29.8 PG (27.0-31.0) Mean Corpuscular Hemoglobin Concent 35.0 G/DL (32.0-36.0) Red Cell Distribution Width 11.3 % (11.6-14.8) L Platelet Count 275 K/UL (150-450) Mean Platelet Volume 5.5 FL (6.5-10.1) L Neutrophils (%) (Auto) 77.9 % (45.0-75.0) H Lymphocytes (%) (Auto) 9.8 % (20.0-45.0) L Monocytes (%) (Auto) 11.1 % (1.0-10.0) H Eosinophils (%) (Auto) 0.3 % (0.0-3.0) Basophils (%) (Auto) 0.9 % (0.0-2.0) Prothrombin Time 10.4 SEC (9.30-11.50) Prothrombin Time INR 1.0 (0.9-1.1) PTT 30 SEC (23-33) Urine Color Yellow Urine Appearance Clear Urine pH 8 (4.5-8.0) Urine Specific [place] 1.010 (1.005-1.035) Urine Protein Negative (NEGATIVE) Urine Glucose (UA) Negative (NEGATIVE) Urine Ketones Negative (NEGATIVE) Urine Blood 1+ (NEGATIVE) H Urine Nitrite Negative (NEGATIVE) Urine Bilirubin Negative (NEGATIVE) Urine Urobilinogen Normal MG/DL (0.0-1.0) Urine Leukocyte Esterase 1+ (NEGATIVE) H Urine RBC 0-2 /HPF (0 - 0) H Urine WBC 2-4 /HPF (0 - 0) Urine Squamous Epithelial Cells None /LPF (NONE/OCC) Urine Bacteria Few /HPF (NONE) Sodium Level 136 MMOL/L (136-145) Potassium Level 3.6 MMOL/L (3.5-5.1) Chloride Level 100 MMOL/L (98-107) Carbon Dioxide Level 28 MMOL/L (21-32) Anion Gap 8 mmol/L (5-15) Blood Urea Nitrogen 8 mg/dL (7-18) Creatinine 1.1 MG/DL (0.55-1.30) Estimate Glomerular Filtration Rate > 60 mL/min (>60) Glucose Level 104 MG/DL (74-106) Calcium Level 8.9 MG/DL (8.5-10.1) Total Bilirubin 0.4 MG/DL (0.2-1.0) Aspartate Amino Transferase (AST) 18 U/L (15-37) Alanine Aminotransferase (ALT) 34 U/L (12-78) Alkaline Phosphatase 55 U/L (46-116) Total Creatine Kinase 73 U/L (26-308) Total Protein 7.3 G/DL (6.4-8.2) Albumin 3.5 G/DL (3.4-5.0) Globulin 3.8 g/dL Albumin/Globulin Ratio 0.9 (1.0-2.7) L Lipase 164 U/L (73-393) Urine Opiates Screen Negative (NEGATIVE) Urine Barbiturates Screen Negative (NEGATIVE) Phencyclidine (PCP) Screen Negative (NEGATIVE) Urine Amphetamines Screen Positive (NEGATIVE) H Urine Benzodiazepines Screen Negative (NEGATIVE) Urine Cocaine Screen Negative (NEGATIVE) Urine Marijuana (THC) Screen Negative (NEGATIVE) Serum Alcohol < 3 mg/dL CT/MRI/US Diagnostic Results CT/MRI/US Diagnostic Results : Imaging Test Ordered: Abdomen and pelvis Impression Impression: Somewhat limited exam due to motion artifact Equivocal mild distal colonic wall thickening, more likely artifact of under distention but could indicate colitis, nonspecific as regards etiology. Apparent bladder wall thickening, likewise possibly an artifact of under distention but cystitis also possible. Correlate with clinical and laboratory findings No acute process otherwise Last Vital Signs Date Time Temp Pulse Resp B/P (MAP) Pulse Ox O2 Delivery O2 Flow Rate FiO2 09/11/18 23:55 99.5 101 16 118/70 98 Room Air Status: improved Disposition: HOME, SELF-CARE Condition: Improved Scripts Acetaminophen (Tylenol) 325 Mg Tablet 650 MG ORAL Q6H PRN for Prn Pain/Headache/Temp > 101, #20 TAB 0 Refills Prov: Aly Rosales MD 09/11/18 Ciprofloxacin Hcl* (CIPROFLOXACIN HCL*) 500 Mg Tablet 500 MG ORAL Q12H, #10 TAB 0 Refills Prov: Aly Rosales MD 09/11/18 Aly Rosales MD Sep 11, 2018 21:51
--- NOTE | 2018-09-11 23:00 | NUR ---
ED Nurse Note: PT CONTINUES TO REST INB ED,A WAKE AND ALERT, CURRENTL PAIN LEVEL AT 4/10, MEDS EFFECTIVE, PT STATES TOOK A WHILE TO PEAK BUT HE FEELS MUCH BETTER NOW, PT IS AMBULATING, NO CP, NO SOB, IV SITE PATENT, V/S STABLE, WILL CONITNUE TO MONITOR AND PREPARE FOR D/C.
[2018-09-11] MEDS ORDERED: Ciprofloxacin 500mg tab ORAL ONE (23:15)
[2018-09-11] MEDS ORDERED: TYLENOL325 MG ORAL (23:16)
[2018-09-11] MEDS ORDERED: CIPROFLOXACIN500 M2 ORAL (23:16)
[2018-09-11 23:30] VITALS: BP 118/70
[2018-09-11 23:55] VITALS: BP 118/70
--- NOTE | 2018-09-12 09:33 | Diagnostic Imaging Report ---
Clinical Indication: Abdominal pain, diarrhea, nausea Technique: Patient given oral contrast. IV administration nonionic contrast. Venous phase spiral acquisition obtained through the abdomen and pelvis. Multiplanar reconstructions were generated. Total dose length product 629.71 mGycm. CTDIvol(s) 10.78 mGy. Dose reduction achieved using automated exposure control Comparison: 03/20/2017 Findings: There is some image degradation due to motion artifact. The appendix is normal. Moderate retained stool seen in the ascending colon. There is equivocal mild wall thickening of the distal transverse, descending, and proximal sigmoid colon, more likely an artifact of under distention. No evidence of diverticulosis or diverticulitis. No definite small bowel distention or small bowel wall thickening. Distal esophagus, stomach, duodenum are unremarkable. No free or loculated intraperitoneal gas or fluid is evident. The liver, gallbladder, bile ducts, pancreas, spleen, adrenals, kidneys are unremarkable. No retroperitoneal or mesenteric mass or adenopathy. No pelvic mass or adenopathy. The bladder appears thick-walled. The included lung bases are grossly clear. The bones are unremarkable Impression: Somewhat limited exam due to motion artifact Equivocal mild distal colonic wall thickening, more likely artifact of under distention but could indicate colitis, nonspecific as regards etiology. Apparent bladder wall thickening, likewise possibly an artifact of under distention but cystitis also possible. Correlate with clinical and laboratory findings No acute process otherwise This agrees with the preliminary interpretation provided overnight by [facility], with minor variation. The CT scanner at [facility] is accredited by the [employer] and the scans are performed using protocols designed to limit radiation exposure to as low as reasonably achievable to attain images of sufficient resolution adequate for diagnostic evaluation.
== END 2018-09-11 23:55 | disposition home or self-care (01) ==
LOC: EMR 22:27
DX: K52.9 Noninfective gastroenteritis and colitis, unspecified (principal); B20 Human immunodeficiency virus [HIV] disease; F15.90 Other stimulant use, unspecified, uncomplicated
CPT/HCPCS: 36415; 74177; 80053; 80307; 81003; 82550; 83690; 85025; 85610; 85730; 86850; 86900; 86901; 87045; 96361; 96374; 96375; 99284; G0480; J1170; J2270; J2405; Q9967; 80329